=== PATIENT | female | born 1930 | race Caucasian/White ===

== ENCOUNTER 2017-03-14 12:29 | Emergency (ER) | payer OTHER ==
[~2017-03-14] VITALS: Ht 139.7 cm; Wt 40.2 kg
[~2017-03-14 12:29] MED LIST: ASPIR-LOW81 MG PO; B COMPLEX1 EACH; BEE POLLEN500 MG; BETA CAROT10000 UNIT; CALCIUM WITH V1 EAC2; CLONAZEPAM0.5 MG PO; CREON1 CAPSULE; FOSAMAX10 MG; IBUPROFEN200 M2; KLONOPIN0.5 M1 PO; NAPROXEN500 MG PO; NORVASC5 MG PO; OMEGA 3 1,0001 EACH; PANCRELIPASE 51 EACH PO; PRAVACHOL80 MG PO; PSYLLIUM FIBE0.52 GM; SYMAX0.125 MG PO; VALIUM2 MG PO; VOLTAREN75 MG PO; Vancocin Oral Solution PO; WELCHOL625 MG PO; ZOLOFT100 M1 PO
[2017-03-14] MEDS ORDERED: PERCOCET 5/31 TABLET PO (14:04)
[2017-03-14] MEDS ORDERED: MOTRIN600 MG PO (14:06)
[2017-03-14 14:28] VITALS: BP 155/99
== END 2017-03-14 15:08 | disposition home or self-care (01) ==
LOC: EME 12:29 → RME 12:29
DX: K08.89 Other specified disorders of teeth and supporting structures (principal); I10 Essential (primary) hypertension; Z86.73 Personal history of transient ischemic attack (TIA), and cerebral infarction without residual deficits
CPT/HCPCS: 99281; 99284

== ENCOUNTER 2017-09-14 10:29 | Emergency (ER) | payer OTHER ==
[~2017-09-14] VITALS: Ht 139.7 cm; Wt 41.1 kg
[~2017-09-14 10:29] MED LIST changes: +MOTRIN600 MG PO; +PERCOCET 5/31 TABLET PO
[2017-09-14 14:25] VITALS: BP 151/93
== END 2017-09-14 14:26 | disposition home or self-care (01) ==
LOC: EME 10:29
DX: R51 Headache (principal); W01.10XA Fall on same level from slipping, tripping and stumbling with subsequent striking against unspecified object, initial encounter; R42 Dizziness and giddiness; R25.8 Other abnormal involuntary movements; I10 Essential (primary) hypertension; Z86.73 Personal history of transient ischemic attack (TIA), and cerebral infarction without residual deficits; Z79.82 Long term (current) use of aspirin
CPT/HCPCS: 70450; 99281; 99284

== ENCOUNTER 2018-01-08 19:25 | Emergency (ER) | payer OTHER ==
[~2018-01-08] VITALS: Ht 139.7 cm; Wt 42.5 kg
[2018-01-08] MEDS ORDERED: MOTRIN600 MG PO (22:06)
[2018-01-08] MEDS ORDERED: NORCO 5/3251 TABLET PO (22:06)
[2018-01-08 22:22] VITALS: BP 133/62
== END 2018-01-08 22:23 | disposition home or self-care (01) ==
LOC: EME 19:25
DX: S39.012A Strain of muscle, fascia and tendon of lower back, initial encounter (principal); Y93.H2 Activity, gardening and landscaping; I10 Essential (primary) hypertension; K21.9 Gastro-esophageal reflux disease without esophagitis; G43.909 Migraine, unspecified, not intractable, without status migrainosus; F41.9 Anxiety disorder, unspecified; F32.9 Major depressive disorder, single episode, unspecified; Z79.82 Long term (current) use of aspirin; Z86.73 Personal history of transient ischemic attack (TIA), and cerebral infarction without residual deficits; Z90.49 Acquired absence of other specified parts of digestive tract; Z98.890 Other specified postprocedural states; Z88.0 Allergy status to penicillin; Z88.2 Allergy status to sulfonamides; Z88.8 Allergy status to other drugs, medicaments and biological substances
CPT/HCPCS: 72220; 99281; 99283